=== PATIENT | female | born 1950 | race Caucasian/White ===

== ENCOUNTER 2020-12-11 11:09 | Emergency (ER) | payer MEDICARE ==
[2020-12-11 12:32] LABS: HEMOGLOBIN 15.5 gm/dl (12.3-15.3); RED BLOOD COUNT 5.18 M/UL (4.00-5.10)
[2020-12-11] MEDS ORDERED: Voltaren gel 1 % TOP (14:01)
[2020-12-11] MEDS ORDERED: ZOFRAN4 MG PO (14:01)
== END 2020-12-11 14:23 | disposition home or self-care (01) ==
LOC: ER1 11:09
PROVIDERS: Physician Assistant Medical
DX: M25.512 Pain in left shoulder (principal); R10.9 Unspecified abdominal pain; R42 Dizziness and giddiness; E11.9 Type 2 diabetes mellitus without complications; I10 Essential (primary) hypertension; Z90.49 Acquired absence of other specified parts of digestive tract
CPT/HCPCS: 71045; 73030; 80053; 81001; 82550; 82553; 83874; 83880; 84439; 84443; 84484; 85025; 93005; 99284